=== PATIENT | female | born 1965 | race Caucasian/White ===

== ENCOUNTER → 2016-04-02 | Outpatient (CLI) | payer BC ==
--- NOTE | 2016-04-02 18:30 | Diagnostic Imaging Report ---
PROCEDURE: CT lumbar spine without contrast. TECHNIQUE: Multiple contiguous axial images were obtained through the lumbar spine without the use of intravenous contrast. Sagittal and coronal reformations were then performed. INDICATION: Back pain. History of fusion surgery. FINDINGS: There is posterior fusion bilateral transpedicular screws and connecting rods involving L4-S1 levels. There are also anteriorly placed screws and evidence of prior discectomy and disc cage placement seen along L4/L5 and L5/S1 discs seen. There is no solid osseous fusion identified at L5-S1 with question of peripheral mild osseous bridging. There is suggestion of osseous bridging posteriorly at L4/L5 vertebral bodies. The facet joints on the left side demonstrate no fusion. The right L4/L5 and L5/S1 facet joints appear fused. There is no compression fracture. The vertebral body heights are preserved. The alignment of the posterior spinal line is satisfactory. There is no pars defect at any level. There is moderate disc height loss and vacuum phenomenon seen at T11/T12 level. Gross evaluation of the spinal canal on this study without intrathecal contrast demonstrates no definite evidence of spinal canal stenosis. There is suggestion of mild disc herniation at L3/L4 and moderate facet arthropathy at this level. The foramina demonstrate no significant stenosis at any level. IMPRESSION: Postsurgical changes at L4/L5 and L5/S1 level. There is osseous fusion of the right L4/L5 and L5/S1 seen across portions of the facet joints at these 2 levels medially. No osseous fusion is seen at the posterior elements on the left side. There is suggestion of minimal osseous bridging across the interbody spaces at L4/L5 and L5/S1. Dictated by: Dictated on workstation # [id number]
== END ==
LOC: RAD 14:45
PROVIDERS: ATTEND Orthopaedic Surgery Orthopaedic Surgery of the Spine
DX: Z48.89 Encounter for other specified surgical aftercare (principal); Z98.1 Arthrodesis status
CPT/HCPCS: 72131